=== PATIENT | male | born 1940 | race Caucasian/White ===

== ENCOUNTER 2023-07-07 09:52 | Emergency (ER) | payer OTHER, SELFPAY ==
[2023-07-07 09:53] VITALS: BMI 23.5
[2023-07-07 10:00] VITALS: BP 146/52
[2023-07-07 11:40] LABS: Urine Albumin Negative (Neg - Trace); Urine Bilirubin Negative (Negative); Urine Character Clear (Clear); Urine Color Yellow; Urine Glucose 3+ (Negative); Urine Ketone Negative (Negative); Urine Leukocyte Negative (Negative); Urine Nitrite Negative (Negative); Urine Occult Blood Negative (Negative); Urine Urobilinogen Negative (Neg - 1+)
[2023-07-07 11:45] LABS: % Basophils 0.5 % (0-2); % Eosinophils 0.6 % (0-6); % Immature Granulocytes 0.2 % (0-0.5); % Lymphocytes 8.3 % (20.5-51.1); % Monocytes 9.8 % (1.7-9.3); % Neutrophils 80.6 % (42.2-75.2); Absolute Basophils 0.1 10^3/uL (0-0.2); Absolute Eosinophils 0.1 10^3/uL (0-0.7); Absolute Lymphocytes 0.8 10^3/uL (1.2-3.4); Absolute Neutrophils 7.8 10^3/uL (1.4-6.5); Hematocrit 41.5 % (39.0-52.0); Hemoglobin 14.6 g/dL (13.0-18.0); Mean Corp Hgb Conc. 35.2 g/dL (33.0-37.0); Mean Corpuscular Hgb 29.9 pg (27.0-31.0); Mean Corpuscular Volume 84.9 fL (80.0-94.0); Mean Platelet Volume 9.4 fL (7.4-10.4); Nucleated Red Blood Cells % 0 % (-); Platelet Count 196 10^3/uL (130-400); Red Blood Cell Count 4.89 10^6/uL (4.70-6.10); Red Cell Dist. Width 12.5 % (11.5-14.5); White Blood Cell Count 9.7 10^3/uL (4.8-10.8)
[2023-07-07 12:01] LABS: ALT (SGPT) 18 U/L (0-50); AST (SGOT) 22 U/L (17-59); Albumin 4.2 g/dl (3.5-5.0); Alkaline Phosphatase 91 U/L (38-126); Blood Urea Nitrogen 27 mg/dl (9-20); Calcium 9.7 mg/dl (8.4-10.2); Carbon Dioxide 26 mmol/L (22-30); Chloride 102 mmol/L (98-107); Estimated Creatinine Clearance 35 ml/min; Glucose 260 mg/dl (70-99); Potassium 4.6 mmol/L (3.5-5.1); Sodium 138 mmol/L (135-145); Total Bilirubin 0.8 mg/dl (0.2-1.3); Total Protein 7.7 g/dl (6.3-8.2); eGFR 46.48
--- NOTE | 2023-07-07 13:53 | ED.GENMED ---
History of Present Illness
General
Chief Complaint: Male Genito-Urinary Symptoms
Source: patient and spouse
Exam Limitations: none
Time Seen by Provider: 07/07/23 10:53
Nursing documentation reviewed up to this point in time: agreed with
Travel History
Have you had any contact with someone who has COVID-19?: No
Do you have any symptoms of coronavirus? Fever > 100 degrees, chills, cough, shortness of breath, sore throat, loss of taste or smell, muscle aches, or headache?: No
History of Present Illness
History of Present Illness:
83-year-old male with past medical history of hyperlipidemia, COPD, diabetes who presents to the emergency room referred by his primary doctor for evaluation of scrotal pain and left lower quadrant abdominal pain. Patient is holding a slip of paper
from his primary doctor that says 'concern for testicular torsion, sent for scrotal ultrasound.' He says that he has had pain since this past mainly in his left scrotum. He does report some pains into his left lower abdomen as well. He
says pain has been constant. He denies any trauma. Has not noticed any scrotal swelling. He has not noticed any dysuria, hematuria, change in urinary frequency. He denies any constipation or diarrhea. No nausea or vomiting. No fevers or
chills. No similar symptoms in the past.
Past History
Past History
ED Past Medical History: Cancer, COPD, Hypercholesterolemia and Other (Diabetes, hyperlipidemia)
ED Past Surgical History: Cholecystectomy
Social History
Tobacco: Former smoker
Alcohol: Occasional
Personal:
Living: with family
Family History
Family History: Other (He has a brother had CABG at age 65)
Review of Systems
Review of Systems
All Other Systems: ROS reviewed and negative except as documented in HPI and ROS
Constitutional: Denies fever or chills
EENT: Denies sore throat or runny nose
Respiratory: Denies cough or trouble breathing
Cardiac: Denies chest pain or palpitations
ABD/GI: Reports abdominal pain; Denies nausea, vomiting, diarrhea or constipated
: Reports other (Scrotal pain); Denies dysuria, frequency or flank pain
Musculoskeletal: Denies neck pain
Neurological: Denies dizzy, headache, weakness or numbness
Phy Exam
Physical Exam
Physical Exam:
General: Awake, alert, oriented x3; no acute distress
Head: Normocephalic, atraumatic
Eyes: Conjunctiva normal, sclera anicteric
Throat: Airway intact, handling secretions
Neck: Trachea midline
Lungs: Clear to auscultation bilaterally, no wheezing, rales, rhonchi
Heart: Regular rate and rhythm, no murmurs, gallops, or rubs
Abd: Soft, non distended, tender to palpation left lower quadrant
: No scrotal swelling, normal testicular lie, very mild tenderness of the left testicle; no hernia noted
Neuro: No gross deficits
Skin: no rash
Extremities: Warm and well-perfused
Scores
Heart Failure Risk
Heart Failure Risk Score: Not Applicable
Heart Score for Chest Pain Patients
STEMI patient?: Not applicable
Withdrawal Assessment of Alcohol
Withdrawal Assessment Completed?: Not applicable
Course
Orders/Labs/Results
Orders:
Orders
07/07/23 11:09
Scrotum US [US Scrotum] Urgent
Comment:
Reason For Exam: left testicular pain and swelling
07/07/23 11:19
Complete Blood Count/With Diff Urgent
Comprehensive Metabolic Panel Urgent
Urinalysis Reflex To Culture Urgent
Date Specimen was Collected: 07/07/23
Time Specimen was Collected: 11:14
07/07/23 12:35
CT Abd/pelvis W Iv Cont Urgent
Comment:
Reason For Exam: LLQ pain and tenderness, left scrotal pain
07/07/23 14:46
MetroNIDAZOLE [Flagyl] 500 mg PO NOW STA
07/07/23 14:47
Ciprofloxacin HCl [Cipro] 500 mg PO ONCE ONE
Abnormal Lab Results
07/07/23
11:19
Absolute Neuts (auto) 7.8 H 10^3/uL
(1.4-6.5)
Absolute Lymphs (auto) 0.8 L 10^3/uL
(1.2-3.4)
Absolute Monos (auto) 1.0 H 10^3/uL
(0.1-0.6)
Neutrophils % 80.6 H %
(42.2-75.2)
Lymphocytes % 8.3 L %
(20.5-51.1)
Monocytes % 9.8 H %
(1.7-9.3)
BUN 27 H mg/dl
(9-20)
Creatinine 1.5 H mg/dL
(0.7-1.3)
Glucose 260 H mg/dl
(70-99)
Urine Glucose 3+ A
(Negative)
07/07/23 11:19
07/07/23 11:19
Vital Signs
Initial and Last Documented VS:
Initial Vital Signs
Temp Pulse Resp BP Pulse Ox
36.6 C 80 16 146/52 98
07/07/23 10:00 07/07/23 10:00 07/07/23 10:00 07/07/23 10:00 07/07/23 10:00
Last Documented Vital Signs
Temp Pulse Resp BP Pulse Ox
36.6 C 63 18 117/37 97
07/07/23 10:00 07/07/23 13:54 07/07/23 13:54 07/07/23 13:54 07/07/23 13:54
MDM/Problems Addressed
Differential Diagnosis Includes:
Nephrolithiasis, UTI, diverticulitis, epididymitis/orchitis; testicular torsion considered much less likely based on exam and age
MDM/Problems Addressed:
83-year-old male presents for evaluation of scrotal pain and left lower quadrant abdominal pain since . He saw his primary doctor today who sent him in to be evaluated for testicular torsion with ultrasound. Vital signs are normal here.
Exam as above. Somewhat low suspicion for torsion just based on age and exam but will send for ultrasound to rule this out, will also evaluate for epididymitis. Clinical suspicion is higher for diverticulitis with some referred pain to the
scrotum. Will check labs, urinalysis, CT of the abdomen pelvis. Will monitor closely reassess after the above.
Labs reviewed: CBC shows no clinically significant abnormalities, CMP shows a creatinine of 1.5 similar to prior. He does have hyperglycemia to 260 nonfasting no signs of DKA. Urinalysis positive for glucose but no signs of infection or blood.
His scrotal ultrasound was negative for torsion, shows small scrotal hydroceles and a small left varicocele lower suspicion that these are primary cause for his pain. We are awaiting results of CT.
CT shows acute uncomplicated diverticulitis. Patient well-appearing mild pain, no signs of sepsis. Medically is a reasonable candidate for outpatient treatment with antibiotics. He feels very comfortable with this plan. Spoke to him and his
at length about diagnosis and plan. Spoke about return precautions all questions answered.
*Radiology
Radiology exam reviewed: radiology read reviewed
*Pulse Oximetry
Patient hypoxic: no
*Critical Care Note
Total Time (30-74mins, 75-104mins- exclusive of procedures): Not Applicable
Data Reviewed
Source: patient, records, spouse and physician (Reviewed note from patient's PCP)
ED Attending Note
-
Portions of this chart may have been created with voice recognition software.� Occasional wrong word or��sound alike� substitutions may have occurred due to the inherent limitations of voice recognition software.
Discharge Plan
Departure
Patient Disposition: Home (Routine Discharge)
Date of Disposition: 07/07/23
Time of Disposition: 14:47
Patient with high blood pressure during this ER visit?: No
Discharge Problem:
Acute diverticulitis
Instructions: Diverticulitis (DC)
Prescriptions:
New
ciprofloxacin HCl 500 mg tablet
500 mg PO BID Qty: 14 0RF
metronidazole 500 mg tablet
500 mg PO TID Qty: 21 0RF
No Action
aspirin 81 MG tablet,delayed release (DR/EC)
81 mg PO DAILY
calcium polycarbophil [Fiber-Tabs] 625 MG tablet
1,250 mg PO DAILY Qty: 0
sitagliptin phosphate [Januvia] 100 MG tablet
100 mg PO DAILY
lisinopril 10 MG tablet
5 mg PO DAILY
multivitamin with folic acid [Tab-A-Yasir] 1 TABLET tablet
1 tab PO DAILY
empagliflozin [Jardiance] 10 MG tablet
10 mg PO DAILY
rosuvastatin 40 MG tablet
40 mg PO DAILY
Patient Comments:
acetaminophen 325 MG tablet
650 mg PO Q6HPRN PRN (Reason: SHOULDER PAIN) 0RF
clopidogrel 75 MG tablet
75 mg PO DAILY Qty: 90 4RF
metformin 500 MG tablet
2,000 mg PO DAILY@0800 Qty: 0 0RF
Rx Instructions:
OK to resume on 03/10 in AM
Referrals:
Kevin Parker MD [Family Provider] - Call in 1-3 days for appt
Activity Restrictions/Additional Instructions:
Thank you for visiting the Emergency Department at [facility].
1. Please schedule a follow up appointment as directed. Call first thing tomorrow morning to make an appointment.
2. If indicated, please take your medications as instructed and indicated on discharge paperwork.
3. If any of your symptoms do not improve, or persist, or become more severe within 6-12 hours, please return to the emergency department for further care.
4. Please return to the emergency department if you develop a headache, neck pain/stiffness, fever greater than 100.4F, chest pain, shortness of breath, persistent nausea, vomiting, slurred speech, difficulty walking, numbness/tingling, weakness,
signs of infection or any other symptoms that are worrisome to you.
Please call [phone] if you have any questions.
Interventions
Interventions:
*General Assessment Last Done: 07/07/23 11:32
*ED COVID-19 Vaccine History Last Done: 07/07/23 10:00
ED-Male Genitourinary Assessment Last Done: 07/07/23 11:32
[2023-07-07 13:54] VITALS: BP 117/37
[2023-07-07] MEDS: FLAGYL 500 MG PO (14:53)
[2023-07-07] MEDS: CIPRO 500 MG PO (14:53)
== END 2023-07-07 15:10 | disposition home or self-care (01) ==
LOC: EMR 09:52
PROVIDERS: EMERGENCY PHYSICIAN Emergency Medicine; FAMILY PHYSICIAN Family Medicine
DX: K57.32 Diverticulitis of large intestine without perforation or abscess without bleeding (principal); N43.3 Hydrocele, unspecified; I86.1 Scrotal varices; J44.9 Chronic obstructive pulmonary disease, unspecified; E78.00 Pure hypercholesterolemia, unspecified; E11.9 Type 2 diabetes mellitus without complications; I25.2 Old myocardial infarction; Z79.82 Long term (current) use of aspirin; Z79.84 Long term (current) use of oral hypoglycemic drugs; Z85.46 Personal history of malignant neoplasm of prostate; Z87.891 Personal history of nicotine dependence; Z90.49 Acquired absence of other specified parts of digestive tract; Z90.79 Acquired absence of other genital organ(s)
CPT/HCPCS: 99285; 74177; 76870; 80053; 81003; 85025; 93976; Q9967

== ENCOUNTER → 2023-07-24 12:53 | Outpatient (REF) | payer OTHER, SELFPAY | LOC: RAD 12:53 | PROVIDERS: ATTENDING PHYSICIAN Podiatrist Foot & Ankle Surgery; FAMILY PHYSICIAN Family Medicine | DX: I73.9 Peripheral vascular disease, unspecified (principal) | CPT/HCPCS: 93922 ==